=== PATIENT | male | born 1970 | race Caucasian/White ===

== ENCOUNTER 2019-07-11 11:13 | Day surgery (SDC) | payer OTHER ==
[~2019-07-11] VITALS: Ht 167.6 cm; Wt 65.0 kg
[~2019-07-11 11:13] MED LIST: FURO40TA4 PO; POTA10TA37 PO
[2019-07-11 12:22] VITALS: BP 110/65; PULSE 109; RESP 16; Ht 167.6 cm; Wt 65.0 kg
[2019-07-11] MEDS ORDERED: ALBUMIN HUMAN 25% 100 ML IV ONE ×2 (12:30→13:00)
[2019-07-11] MEDS ORDERED: LIDOCAINE 1% (MPF) 5 ML VIAL ONE (13:36)
[2019-07-11 14:24] VITALS: BP 104/66; PULSE 93; RESP 18
== END 2019-07-12 19:00 | disposition home or self-care (01) ==
LOC: SDS 11:13
PROVIDERS: ATTEND Internal Medicine Hepatology
DX: R18.8 Other ascites (principal); Z87.891 Personal history of nicotine dependence
CPT/HCPCS: 49083; 89051; P9047; Z7610